=== PATIENT | female | born 1980 | race Hispanic/Latino ===

== ENCOUNTER 2024-03-15 15:28 | Outpatient (CLI) | payer OTHER | END 2024-03-15 15:29 | disposition home or self-care (01) | LOC: SCSRAD 15:28 | PROVIDERS: ATTEND Family Medicine | DX: M54.42 Lumbago with sciatica, left side (principal); M47.816 Spondylosis without myelopathy or radiculopathy, lumbar region | CPT/HCPCS: 72100 ==